=== PATIENT | male | born 1970 | race Caucasian/White ===

== ENCOUNTER 2018-03-29 18:08 | Emergency (ER) | END 2018-03-29 21:52 | disposition home or self-care (01) ==

== ENCOUNTER 2018-04-01 12:03 | Emergency (ER) | END 2018-04-01 13:47 | disposition home or self-care (01) ==

== ENCOUNTER 2019-03-12 01:43 | Emergency (ER) | payer BC ==
[~2019-03-12] VITALS: Ht 172.7 cm; Wt 88.2 kg
[~2019-03-12 01:43] MED LIST: ALBU8.5H8 INH; AZIT250T PO; BACI28.34 TOP; BENZ-6 PO; CEPH-443 PO; D-ME473S2 PO; IBUP-1542 PO; IBUP-1561 PO; IBUP800T48 PO; PRED20TA PO; SULF1TAB31 PO
[2019-03-12 01:56] VITALS: BP 139/82; PULSE 98; RESP 20; Ht 172.7 cm; Wt 88.2 kg
[2019-03-12] MEDS ORDERED: GUAIFENESIN/CODEINE 5ML CUP PO ONE (02:30)
== END 2019-03-12 02:57 | disposition home or self-care (01) ==
LOC: FTE 01:43
DX: J40 Bronchitis, not specified as acute or chronic (principal)
CPT/HCPCS: 99283; Z7610

== ENCOUNTER 2019-03-23 21:43 | Emergency (ER) | payer BC ==
[~2019-03-23] VITALS: Ht 172.7 cm; Wt 89.0 kg
[2019-03-23 22:24] VITALS: Ht 172.7 cm; Wt 89.0 kg
[2019-03-24 01:29] VITALS: BP 140/95; PULSE 98; RESP 20
[2019-03-24] MEDS ORDERED: GUAIFENESIN 20 MG/ML 5ML CUP PO ONE (01:30)
== END 2019-03-24 01:30 | disposition home or self-care (01) ==
LOC: FTE 21:43
DX: R05 Cough (principal)
CPT/HCPCS: 71046; 99283; Z7610